=== PATIENT | female | born 1950 | race African-American/Black ===

== ENCOUNTER 2017-05-07 23:19 | Emergency (ER) | payer OTHER ==
[~2017-05-07] VITALS: Ht 160 cm; Wt 72.0 kg
[~2017-05-07 23:19] MED LIST: AMLO2.5T45 PO; ATOR10TA69 PO; LISI2.5T47 PO
[2017-05-08] MEDS ORDERED: SODIUM CHLORIDE 0.9% 1,000 ML IV ONE (00:13)
[2017-05-08 00:47] LABS: BASOPHILS % 0.7 % (0.0-2.0); EOSINOPHILS % 2.4 % (0.0-5.0); HEMATOCRIT. 30.6 % (36.0-48.0); HEMOGLOBIN. 10.1 g/dL (12.0-16.0); LYMPHOCYTES % 11.8 % (20.0-50.0); MEAN CORPUSCULAR HEMOGLOBIN 28.8 pg (28.0-32.0); MEAN CORPUSCULAR VOLUME 87.1 fL (81.0-99.0); MEAN PLATELET VOLUME 8.5 fl (7.4-10.4); MONOCYTES % 4.7 % (2.0-8.0); NEUTROPHILS % 80.4 % (40.0-76.0); PLATELET 302 x1000/uL (130-400); RED BLOOD CELL COUNT 3.51 mill/uL (4.2-5.4)
[2017-05-08 00:59] LABS: CARBON DIOXIDE 27 mEq/L (21-32); CHLORIDE 105 mEq/L (98-107); TROPONIN I < 0.02 ng/mL (0.00-0.04)
[2017-05-08 07:08] VITALS: BP 129/63
== END 2017-05-08 07:12 | disposition home or self-care (01) ==
LOC: ER 23:51
DX: I95.2 Hypotension due to drugs (principal); T44.7X5A Adverse effect of beta-adrenoreceptor antagonists, initial encounter; T46.4X5A Adverse effect of angiotensin-converting-enzyme inhibitors, initial encounter; T39.015A Adverse effect of aspirin, initial encounter; J45.909 Unspecified asthma, uncomplicated; Y92.89 Other specified places as the place of occurrence of the external cause
CPT/HCPCS: 36415; 71010; 80053; 84484; 85025; 93005; 96360; 96361; 99285; J7030; Z7610

== ENCOUNTER 2018-08-24 15:43 | Emergency (ER) | payer OTHER ==
[~2018-08-24] VITALS: Ht 167.6 cm; Wt 71.0 kg
[2018-08-24 17:51] LABS: BASOPHILS % 0.9 % (0.0-2.0); EOSINOPHILS % 2.5 % (0.0-5.0); HEMOGLOBIN. 11.2 g/dL (12.0-16.0); LYMPHOCYTES % 17.1 % (20.0-50.0); MEAN CORPUSCULAR HEMOGLOBIN 29.2 pg (28.0-32.0); MEAN CORPUSCULAR VOLUME 88.8 fL (81.0-99.0); MEAN PLATELET VOLUME 8.2 fl (7.4-10.4); NEUTROPHILS % 70.5 % (40.0-76.0); PLATELET 325 x1000/uL (130-400); RED BLOOD CELL COUNT 3.83 mill/uL (4.2-5.4); RED CELL DISTRIBUTION WIDTH 14.2 % (11.6-14.6)
[2018-08-24 17:55] LABS: CHLORIDE 96 mEq/L (98-107)
[2018-08-24 18:55] VITALS: BP 133/82
== END 2018-08-24 19:13 | disposition home or self-care (01) ==
LOC: ER 15:43
DX: R42 Dizziness and giddiness (principal); R73.03 Prediabetes; I10 Essential (primary) hypertension; J45.909 Unspecified asthma, uncomplicated; M19.90 Unspecified osteoarthritis, unspecified site
CPT/HCPCS: 36415; 71045; 84484; 93005; 99285

== ENCOUNTER 2019-10-09 08:30 | Emergency (ER) | payer OTHER ==
[~2019-10-09] VITALS: Ht 165.1 cm; Wt 87.0 kg
[2019-10-09] MEDS ORDERED: IPRATROPIUM BROMIDE (0.02%) 0.5MG/2.5ML NEB HHN STA (10:14)
[2019-10-09] MEDS ORDERED: ALBUTEROL (0.083%) 2.5MG/3ML NEB HHN STA (10:14)
[2019-10-09] MEDS ORDERED: ALBUTEROL (0.083%) 2.5MG/3ML NEB ONE (10:28)
[2019-10-09 12:32] VITALS: BP 130/58
== END 2019-10-09 12:38 | disposition home or self-care (01) ==
LOC: ER 08:30
DX: J45.901 Unspecified asthma with (acute) exacerbation (principal); E78.00 Pure hypercholesterolemia, unspecified; I10 Essential (primary) hypertension; M19.90 Unspecified osteoarthritis, unspecified site; Z91.012 Allergy to eggs
CPT/HCPCS: 71045; 93005; 94644; 99285; J7611

== ENCOUNTER 2022-10-16 09:37 | Emergency (ER) | payer OTHER ==
[~2022-10-16] VITALS: Ht 167.6 cm; Wt 73.4 kg
[2022-10-16] MEDS ORDERED: IOHEXOL-350 100 ML BOTTLE ONE (10:14)
[2022-10-16 10:24] LABS: BASOPHILS % 0.7 % (0.0-2.0); EOSINOPHILS % 1.3 % (0.0-5.0); HEMATOCRIT. 32.4 % (36.0-48.0); HEMOGLOBIN. 10.8 g/dL (12.0-16.0); LYMPHOCYTES % 23.2 % (20.0-50.0); MEAN CORPUSCULAR HEMOGLOBIN 30.2 pg (28.0-32.0); MEAN CORPUSCULAR VOLUME 90.4 fL (81.0-99.0); MEAN PLATELET VOLUME 7.2 fl (7.4-10.4); NEUTROPHILS % 67.8 % (40.0-76.0); PLATELET 350 x1000/uL (130-400); RED BLOOD CELL COUNT 3.59 mill/uL (4.2-5.4); RED CELL DISTRIBUTION WIDTH 13.5 % (11.6-14.6)
[2022-10-16 10:29] LABS: CHLORIDE 92 mEq/L (98-107)
[2022-10-16 10:38] LABS: ETHANOL BLOOD < 10 mg/dL
[2022-10-16 10:45] LABS: CLARITY URINE CLEAR (CLEAR); COLOR URINE YELLOW (YELLOW); KETONES URINE NEGATIVE (NEGATIVE); LEUKOCYTE ESTERASE URINE NEGATIVE (NEGATIVE); NITRITE URINE NEGATIVE (NEGATIVE); OCCULT BLOOD URINE TRACE (NEGATIVE); PROTEIN URINE NEGATIVE (NEGATIVE); SPECIFIC GRAVITY URINE 1.019 (1.005-1.030); UROBILINOGEN URINE 0.2 E.U./dL (0.2-1.0)
[2022-10-16] MEDS ORDERED: ASPIRIN 325MG EC TABLET PO ONE (11:00)
[2022-10-16] MEDS ORDERED: LABETALOL 5MG/ML SYR 20 MG/4 ML SYRINGE IV ONE (11:00)
[2022-10-16 11:37] LABS: *AMPHETAMINES SCREEN URINE NEGATIVE (NEGATIVE); *BARBITURATES SCREEN URINE NEGATIVE (NEGATIVE); *BENZODIAZEPINES SCREEN URINE NEGATIVE (NEGATIVE); *COCAINE SCREEN URINE NEGATIVE (NEGATIVE); CANNABINOID URINE SCREEN NEGATIVE (NEGATIVE); METHADONE URINE SCREEN NEGATIVE (NEGATIVE); OPIATES URINE SCREEN NEGATIVE (NEGATIVE); PHENCYCLIDINE URINE SCREEN NEGATIVE (NEGATIVE)
[2022-10-16 12:47] VITALS: BP 122/73
== END 2022-10-16 13:15 | disposition left against medical advice (07) ==
LOC: ER 09:37 → EDBEDREQ 10:58 → EDBEDREQSVC 10:58 → CMPBEDREQ 12:48 → ER 13:15
DX: G45.9 Transient cerebral ischemic attack, unspecified (principal); I10 Essential (primary) hypertension; J45.909 Unspecified asthma, uncomplicated; M19.90 Unspecified osteoarthritis, unspecified site; Z20.822 Contact with and (suspected) exposure to COVID-19; Z91.012 Allergy to eggs
CPT/HCPCS: 36415; 70450; 70496; 70498; 71045; 80053; 80305; 80320; 81003; 85025; 99291; Q9967; J3490; G0480

== ENCOUNTER 2022-11-18 14:52 | Emergency (ER) | payer OTHER ==
[~2022-11-18] VITALS: Ht 167.6 cm; Wt 64.0 kg
[2022-11-18 14:54] VITALS: BP 186/121
[2022-11-18 15:52] LABS: HEMOGLOBIN. 11.3 g/dL (12.0-16.0); MEAN CORPUSCULAR HEMOGLOBIN 30.5 pg (28.0-32.0); MEAN CORPUSCULAR VOLUME 91.4 fL (81.0-99.0); MEAN PLATELET VOLUME 7.5 fl (7.4-10.4); PLATELET 325 x1000/uL (130-400); RED BLOOD CELL COUNT 3.72 mill/uL (4.2-5.4); RED CELL DISTRIBUTION WIDTH 13.1 % (11.6-14.6)
[2022-11-18 15:57] LABS: CHLORIDE 94 mEq/L (98-107)
[2022-11-18 16:10] LABS: ETHANOL BLOOD < 10 mg/dL
[2022-11-18 17:14] LABS: PLATELET ESTIMATE NORMAL
[2022-11-18] MEDS ORDERED: ASPIRIN 81MG TABLET PO ONE (21:00)
[2022-11-18] MEDS ORDERED: SODIUM CHLORIDE 0.9% 1,000 ML IV ONE (21:00)
[2022-11-18] MEDS ORDERED: POTASSIUM CHLORIDE 20MEQ TABLET SR PO ONE (21:45)
== END 2022-11-19 01:07 | disposition home or self-care (01) ==
LOC: ER 14:52 → CANBEDREQ 11-20 21:03
DX: G93.40 Encephalopathy, unspecified (principal); R53.1 Weakness; J45.909 Unspecified asthma, uncomplicated; I10 Essential (primary) hypertension
CPT/HCPCS: 36415; 70450; 71045; 80053; 80320; 84484; 85025; 93005; 99285; J7030; G0480